=== PATIENT | female | born 1970 | race Two or more races ===

== ENCOUNTER 2019-02-10 18:37 | Emergency (ER) | payer OTHER ==
[~2019-02-10] VITALS: Ht 177.8 cm; Wt 108.9 kg
[2019-02-10] MEDS ORDERED: HYDROcodone-ACET 5/325MG TAB PO ONE ×2 (20:00)
[2019-02-10 22:15] VITALS: BP 118/75
== END 2019-02-10 22:35 | disposition home or self-care (01) ==
LOC: ER 18:40
DX: M47.896 Other spondylosis, lumbar region (principal)
CPT/HCPCS: 72100